=== PATIENT | male | born 1960 | race African-American/Black ===

== ENCOUNTER 2019-11-02 05:17 | Emergency (ER) | payer MEDICARE, OTHER ==
[~2019-11-02] VITALS: Ht 190.5 cm; Wt 170.4 kg
[~2019-11-02 05:17] MED LIST: CARV3.12 PO; CYCL10TA2 PO; FURO-68 PO; HYDR-2145 PO; Hydrocodone/Acetaminophen PO; LISI-334 PO; POTA20TA12 PO
--- NOTE | 2019-11-02 05:37 | PHYS DOC ---
Past Medical History Past Medical History: Hypertension, Other Additional Past Medical Histor: LYMPHEDEMA (CARLOS GLOVER MD) Past Surgical History: Other Additional Past Surgical Histo: LEFT KNEE ( ACL) (CARLOS GLOVER MD) Smoking Status: Never Smoker Alcohol Use: Occasionally Drug Use: None (CARLOS GLOVER MD) General Adult EDM: Chief Complaint: PAIN CONTROL HPI: HPI: Patient is a 59 year old male who presents with back pain is progressed over the last week. Pain is now rated as severe. Pain is described as pain that is worse with sitting and radiates to his right butt cheek. Pain is worse with range of motion. Patient denies any weakness or numbness in his legs or any bowel or bladder incontinence. Patient has chronic lymphedema in his legs and takes diuretics but he noticed he only urinated 3 times yesterday which is abnormal for him. Patient denies any fever, cough, vomiting, diarrhea. (CARLOS GLOVER MD) Review of Systems: Review of Systems: Constitutional: Denies fever or chills. [] Eyes: Denies change in visual acuity. [] HENT: Denies nasal congestion or sore throat. [] Respiratory: Denies cough or shortness of breath. [] Cardiovascular: Denies chest pain but has chronic edema of the legs GI: Denies abdominal pain, nausea, vomiting, bloody stools or diarrhea. [] : Denies dysuria. Denies bladder incontinence, complains of decreased urine output yesterday Musculoskeletal: Complains of back pain rating to right leg Integument: Denies rash. [] Neurologic: Denies headache, focal weakness or sensory changes. [] Lymphatic: Denies swollen glands. [] Psychiatric: Denies depression or anxiety. [] (CARLOS GLOVER MD) Heart Score: Risk Factors: Risk Factors: DM, Current or recent (<one month) smoker, HTN, HLP, family history of CAD, obesity. Risk Scores: Score 0 - 3: 2.5% MACE over next 6 weeks - Discharge Home Score 4 - 6: 20.3% MACE over next 6 weeks - Admit for Clinical Observation Score 7 - 10: 72.7% MACE over next 6 weeks - Early Invasive Strategies (CARLOS GLOVER MD) Allergies: Allergies: Allergies Coded Allergies Type Severity Reaction Last Updated Verified No Known Drug Allergies 4/3/14 No (CARLOS GLOVER MD) Physical Exam: PE: Constitutional: Well developed, well nourished, no acute distress, non-toxic appearance. [] HENT: Normocephalic, atraumatic, bilateral external ears normal, no trismus nose normal. [] Eyes: PERRLA, EOMI, conjunctiva normal, no discharge. [] Neck: Normal range of motion, no tenderness, supple, no stridor. [] Cardiovascular:Heart rate regular rhythm, Lungs & Thorax: No respiratory distress Abdomen: Obese, soft, minimal diffuse tenderness, no guarding or rebound, no masses, no pulsatile masses. [] Skin: Warm, dry, no erythema, no rash. [] Back: No tenderness, no CVA tenderness. [] Extremities: Bilateral lower extremities with 4+ edema. Wrapped in Michael wrap Neurologic: Alert and oriented X 3, normal motor function, normal sensory function, no focal deficits noted. [] No saddle anesthesia, dorsiflexion of the great toes intact bilateral lower extremities Psychologic: Affect normal, judgement normal, mood normal. [] (CARLOS GLOVER MD) EKG: EKG: [] (CARLOS GLOVER MD) Radiology/Procedures: Radiology/Procedures: [] (CARLOS GLOVER MD) Radiology/Procedures: [facility] [address] [place], [place] [id number] IMAGING REPORT Signed PATIENT: STEPHANIE WOODARD ACCOUNT: [id number] : 1960 LOCATION: ER AGE: 59 SEX: M EXAM STATUS: REG ER ORD. PHYSICIAN: CARLOS GLOVER MD REASON: back pain PROCEDURE: CT LUMBAR SPINE WO CONTRAST EXAM: CT Lumbar Spine without IV contrast INDICATION: Reason: back pain / Spl. Instructions: / History: TECHNIQUE: Multi-detector row CT images were obtained through the lumbar spine without the use of IV contrast. Post-processing sagittal and coronal reconstructed images were obtained for interpretation. All CT scans performed at this facility utilize dose optimization techniques as appropriate to the exam, including the following: Automated exposure control and adjustment of the mA and/or KV according to patient size (this includes techniques or standardized protocols for targeted exams where dose is indication/reason for exam). COMPARISON: None FINDINGS: The lowest fully formed disc is referred to as the L5-S1 level. ALIGNMENT: Alignment is within normal limits. OSSEOUS: No evidence of fracture or bone destruction. DISC SPACES: Unremarkable. FACET JOINTS: facet degenerative changes are present, most conspicuous in the lower lumbar spine, right greater than left. SPINAL CANAL: Unremarkable. NEUROFORAMINA: Unremarkable. SOFT TISSUES: Moderate stool in the rectal vault. IMPRESSION: 1. No acute abnormality noted in the lumbar spine. 2. Facet degenerative changes are present. 3. Moderate stool in the rectum. Correlate for constipation. Electronically signed by: Dulce Williamson MD (11/02/2019 6:01 AM) [facility] [place] DICTATED and SIGNED BY: DULCE WILLIAMSON MD DATE: 11/02/19600 (ISI LOUIS DO) Course & Med Decision Making: Course & Med Decision Making Pertinent Labs and Imaging studies reviewed. (See chart for details) [] 59-year-old male with back pain. Patient seen in the ER and labs and CT scans were ordered. Care signed over to Dr. Louis with labs, imaging and disposition pending (CARLOS GLOVER MD) Course & Med Decision Making Patient is doing much better, CT scan of the lumbar spine show degenerative joint disease, kidney function: creatinine at 2.7. Patient said his baseline creatinine level run about 3.0, last time he had a creatinine level checked was last August. Patient has urinated about 300 cc of urine in the ER. Patient will be discharged home, he will need to follow-up with his family doctor for further evaluation with MRI of the lumbar spine. It may be beneficial to go see a pain specialist as well. Patient will be discharged home with pain medication. Patient is amenable to plan of care. (ISI LOUIS DO) Dragon Disclaimer: Dragon Disclaimer: This electronic medical record was generated, in whole or in part, using a voice recognition dictation system. (CARLOS GLOVER MD) Departure Departure Impression: Primary Impression: Back pain Disposition: HOME, SELF-CARE Condition: STABLE Referrals: SUSAN COOK MD (PCP) Please follow-up with your family doctor for referral to a pain specialist, and evaluation with MRI of your lumbar spine. Patient Instructions: Back Pain, Adult Additional Instructions: Thank you for visiting our Emergency Department. We appreciate you trusting us with your care. If any additional problems come up don't hesitate to return to visit us. Please follow up with your primary care provider so they can plan additional care if needed and know about the problem that you had. If symptoms worsen come back to the Emergency Department. Any concerning symptoms that start such as chest pain, shortness of air, weakness or numbness on one side of the body, running high fevers or any other concerning symptoms return to the ER. Scripts Hydrocodone/Apap 5-325 (NORCO 5-325 TABLET) 1 Each Tablet 1 TAB PO PRN Q6HRS PRN for PAIN, #15 TAB 0 Refills Prov: ISI LOUIS DO 11/02/19 Justicifation of Admission Dx: Justifications for Admission: Justification of Admission Dx: N/A (CARLOS GLOVER MD) CARLOS GLOVER MD Nov 02, 2019 05:37 ISI LOUIS DO Nov 02, 2019 06:08
[2019-11-02] MEDS ORDERED: MORPHINE SULFATE 4 MG/ML VIAL. IV ONE ×2 (06:00→07:30)
[2019-11-02] MEDS ORDERED: ONDANSETRON PF 4 MG/2 ML VIAL. IVP ONE (06:00)
--- NOTE | 2019-11-02 06:04 | RAD ---
EXAM: CT Lumbar Spine without IV contrast INDICATION: Reason: back pain / Spl. Instructions: / History: TECHNIQUE: Multi-detector row CT images were obtained through the lumbar spine without the use of IV contrast. Post-processing sagittal and coronal reconstructed images were obtained for interpretation. All CT scans performed at this facility utilize dose optimization techniques as appropriate to the exam, including the following: Automated exposure control and adjustment of the mA and/or KV according to patient size (this includes techniques or standardized protocols for targeted exams where dose is indication/reason for exam). COMPARISON: None FINDINGS: The lowest fully formed disc is referred to as the L5-S1 level. ALIGNMENT: Alignment is within normal limits. OSSEOUS: No evidence of fracture or bone destruction. DISC SPACES: Unremarkable. FACET JOINTS: facet degenerative changes are present, most conspicuous in the lower lumbar spine, right greater than left. SPINAL CANAL: Unremarkable. NEUROFORAMINA: Unremarkable. SOFT TISSUES: Moderate stool in the rectal vault. IMPRESSION: 1. No acute abnormality noted in the lumbar spine. 2. Facet degenerative changes are present. 3. Moderate stool in the rectum. Correlate for constipation. Electronically signed by: Kim Williamson MD (11/02/2019 6:01 AM) [place]
[2019-11-02 06:08] LABS: BASO % 1 % (0-3); EOS # 0.1 x10^3/uL (0.0-0.7); EOS % 2 % (0-3); HEMATOCRIT 35.3 % (39.0-53.0); HEMOGLOBIN 11.3 g/dL (13.0-17.5); LYMPH # 0.6 x10^3/uL (1.0-4.8); LYMPH % 8 % (24-48); MEAN CORPUSCULAR HEMOGLOBIN 31 pg (25-35); MEAN CORPUSCULAR HGB CONC 32 g/dL (31-37); MEAN CORPUSCULAR VOLUME 95 fL (79-100); MONO # 0.7 x10^3/uL (0.0-1.1); MONO % 10 % (0-9); NEUT # 6.1 x10^3/uL (1.8-7.7); NEUT % 80 % (31-73); PLATELET COUNT 201 x10^3/uL (140-400); RED BLOOD COUNT 3.71 x10^6/uL (4.30-5.70); RED CELL DISTRIBUTION WIDTH 15.9 % (11.5-14.5); WHITE BLOOD COUNT 7.6 x10^3/uL (4.0-11.0)
[2019-11-02 06:18] LABS: CALCIUM 9.1 mg/dL (8.5-10.1); CREATININE 2.6 mg/dL (0.7-1.3); GFR 30.9
[2019-11-02 06:23] LABS: BILIRUBIN,URINE NEGATIVE (NEG); CLARITY,URINE CLEAR; COLOR,URINE YELLOW; NITRITE,URINE NEGATIVE (NEG); PROTEIN,URINE NEGATIVE (NEG-TRACE)
[2019-11-02 06:24] LABS: ALBUMIN 3.1 g/dL (3.4-5.0); ALBUMIN/GLOBULIN RATIO 0.6 (1.0-1.7); TOTAL BILIRUBIN 0.7 mg/dL (0.2-1.0); TOTAL PROTEIN 8.1 g/dL (6.4-8.2)
[2019-11-02 06:27] LABS: POTASSIUM 3.7 mmol/L (3.5-5.1)
[2019-11-02 06:29] LABS: BACTERIA,URINE FEW /HPF (0-FEW); RBC,URINE RARE /HPF (0-2); SQUAMOUS EPITHELIAL CELL,UR FEW /LPF; WBC,URINE OCC /HPF (0-4)
[2019-11-02] MEDS ORDERED: HYDR-3164 PO (07:54)
[2019-11-02 08:06] VITALS: BP 179/91
== END 2019-11-02 08:05 | disposition home or self-care (01) ==
LOC: ER 05:17
DX: M54.9 Dorsalgia, unspecified (principal); I10 Essential (primary) hypertension; Z98.890 Other specified postprocedural states
CPT/HCPCS: 36415; 72131; 80053; 81001; 83690; 85025; 96374; 96375; 96376; 99285; J2270; J2405